=== PATIENT | female | born 1975 | race Asian ===

== ENCOUNTER 2016-03-21 13:33 | Outpatient (CLI) | payer OTHER | END 2016-03-21 20:51 | disposition home or self-care (01) | LOC: RAD 13:33 | DX: M25.511 Pain in right shoulder (principal) ==

== ENCOUNTER 2016-07-22 11:00 | Outpatient (CLI) | payer OTHER | END 2016-07-22 13:00 | disposition home or self-care (01) | LOC: RESP 11:00 | DX: R06.09 Other forms of dyspnea (principal); Z01.810 Encounter for preprocedural cardiovascular examination ==

== ENCOUNTER 2016-10-02 13:14 | Outpatient (CLI) | payer OTHER | END 2016-10-02 20:00 | disposition home or self-care (01) | LOC: RAD 13:14 | DX: M79.672 Pain in left foot (principal) ==

== ENCOUNTER 2016-11-21 10:28 | Outpatient (CLI) | payer OTHER | END 2016-11-21 19:14 | disposition home or self-care (01) | LOC: RAD 10:28 | DX: K59.01 Slow transit constipation (principal) ==

== ENCOUNTER 2016-12-27 22:47 | Emergency (ER) | payer OTHER ==
[~2016-12-27] VITALS: Ht 167.6 cm; Wt 155.6 kg
== END 2016-12-27 23:34 | disposition home or self-care (01) ==
LOC: ED 22:47
DX: R20.0 Anesthesia of skin (principal)
CPT/HCPCS: 99281

== ENCOUNTER 2017-01-09 14:05 | Outpatient (CLI) | payer OTHER | END 2017-01-09 19:01 | disposition home or self-care (01) | LOC: RAD 14:05 | DX: M25.561 Pain in right knee (principal) ==

== ENCOUNTER 2017-01-27 12:47 | Outpatient (CLI) | payer OTHER | END 2017-01-27 19:11 | disposition home or self-care (01) | LOC: RAD 12:47 | DX: M79.672 Pain in left foot (principal) ==

== ENCOUNTER 2017-05-21 16:07 | Outpatient (CLI) | payer OTHER | END 2017-05-21 22:58 | disposition home or self-care (01) | LOC: RESP 16:07 | DX: G56.03 Carpal tunnel syndrome, bilateral upper limbs (principal); G56.23 Lesion of ulnar nerve, bilateral upper limbs | CPT/HCPCS: 95885; 95911 ==

== ENCOUNTER 2017-06-01 12:26 | Outpatient (CLI) | payer OTHER | END 2017-06-01 23:37 | disposition home or self-care (01) | LOC: RAD 12:26 | DX: M54.5 Low back pain (principal) ==

== ENCOUNTER 2017-06-12 10:22 | Outpatient (CLI) | payer OTHER | END 2017-06-12 19:24 | disposition home or self-care (01) | LOC: MRI 10:22 | DX: M51.36 Other intervertebral disc degeneration, lumbar region (principal) ==

== ENCOUNTER 2017-09-17 15:43 | Outpatient (CLI) | payer OTHER | END 2017-09-17 22:54 | disposition home or self-care (01) | LOC: RAD 15:43 | DX: S00.33XA Contusion of nose, initial encounter (principal) ==

== ENCOUNTER 2017-12-19 10:57 | Emergency (ER) | payer OTHER ==
[~2017-12-19] VITALS: Ht 167.6 cm; Wt 148.3 kg
[2017-12-19] MEDS ORDERED: GRALISE600 MG PO (11:07)
[2017-12-19] MEDS ORDERED: ADDERALL10 MG PO (11:07)
[2017-12-19 11:29] LABS: PLATELET COUNT 258 K/uL (152-353)
[2017-12-19 11:35] LABS: POTASSIUM 3.7 mmol/L (3.6-5.2)
[2017-12-19 14:35] VITALS: BP 135/75; TEMP 98.1
== END 2017-12-19 14:35 | disposition home or self-care (01) ==
LOC: ED 10:57
PROVIDERS: Family Medicine
DX: F32.89 Other specified depressive episodes (principal); R00.1 Bradycardia, unspecified
CPT/HCPCS: 36415; 80053; 80307; 80320; 80329; 81000; 84443; 85027; 93005; 99283

== ENCOUNTER 2018-02-13 09:34 | Outpatient (CLI) | payer OTHER ==
[~2018-02-13 09:34] MED LIST: ADDERALL10 MG PO; GRALISE600 MG PO
[2018-02-13 10:26] LABS: PLATELET COUNT 265 K/uL (152-353)
[2018-02-13 10:34] LABS: POTASSIUM 4.1 mmol/L (3.6-5.2)
== END 2018-02-13 18:49 | disposition home or self-care (01) ==
LOC: LABW 09:34
PROVIDERS: Family Medicine
DX: J09.X1 Influenza due to identified novel influenza A virus with pneumonia (principal)
CPT/HCPCS: 36415; 80053; 85027; 96360

== ENCOUNTER 2018-11-04 16:14 | Outpatient (CLI) | payer OTHER | END 2018-11-04 23:26 | disposition home or self-care (01) | LOC: RAD 16:14 | DX: S99.822A Other specified injuries of left foot, initial encounter (principal) ==

== ENCOUNTER 2018-11-16 14:08 | Emergency (ER) | payer OTHER ==
[~2018-11-16] VITALS: Ht 167.6 cm; Wt 145.2 kg
[2018-11-16 15:01] LABS: PLATELET COUNT 291 K/uL (152-353)
[2018-11-16 15:18] LABS: POTASSIUM 3.7 mmol/L (3.6-5.2); SODIUM 136 mmol/L (136-145)
[2018-11-16 17:35] VITALS: BP 124/76; TEMP 97.8
== END 2018-11-16 17:35 | disposition home or self-care (01) ==
LOC: ED 14:08
PROVIDERS: Family Medicine
DX: R07.89 Other chest pain (principal); K21.9 Gastro-esophageal reflux disease without esophagitis; J06.9 Acute upper respiratory infection, unspecified
CPT/HCPCS: 80053; 82550; 84484; 85027; 93005; 99284

== ENCOUNTER 2019-08-01 12:21 | Emergency (ER) | payer OTHER ==
[~2019-08-01] VITALS: Ht 167.6 cm; Wt 157.9 kg
[2019-08-01 14:59] VITALS: BP 135/91; TEMP 97.7
== END 2019-08-01 14:59 | disposition home or self-care (01) ==
LOC: ED 12:21
DX: K59.09 Other constipation (principal); N39.0 Urinary tract infection, site not specified
CPT/HCPCS: 81000; 99283

== ENCOUNTER 2019-08-30 12:58 | Outpatient (CLI) | payer OTHER ==
[~2019-08-30 12:58] MED LIST changes: +OMEPRAZOLE20 M1 PO
== END 2019-08-30 20:36 | disposition home or self-care (01) ==
LOC: CT 12:58
DX: S89.92XA Unspecified injury of left lower leg, initial encounter (principal)

== ENCOUNTER 2019-09-28 11:40 | Outpatient (CLI) | payer OTHER ==
[~2019-09-28] VITALS: Ht 167.6 cm; Wt 158.8 kg
[2019-09-28 11:55] VITALS: BP 108/76; TEMP 99.2
== END 2019-09-28 19:51 | disposition home or self-care (01) ==
LOC: INF 11:40
DX: E86.0 Dehydration (principal)
CPT/HCPCS: 96360; 96366

== ENCOUNTER 2021-04-23 16:22 | Outpatient (CLI) | payer OTHER ==
[2021-04-23 17:10] LABS: POTASSIUM 3.6 mmol/L (3.6-5.2)
== END 2021-04-23 18:58 | disposition home or self-care (01) ==
LOC: US 16:22
PROVIDERS: ATTEND Nurse Practitioner Primary Care
DX: R60.0 Localized edema (principal)
CPT/HCPCS: 36415; 80053; 83880

== ENCOUNTER 2021-07-15 11:34 | Outpatient (CLI) | payer OTHER | END 2021-07-15 18:53 | disposition home or self-care (01) | LOC: RAD 11:34 | PROVIDERS: ATTEND Physician Assistant | DX: M54.59 Other low back pain (principal); M25.562 Pain in left knee ==

== ENCOUNTER 2022-03-21 12:11 | Outpatient (CLI) | payer OTHER | END 2022-03-21 19:17 | disposition home or self-care (01) | LOC: RAD 12:11 | PROVIDERS: ATTEND Physician Assistant | DX: M25.512 Pain in left shoulder (principal) ==

== ENCOUNTER 2022-04-30 14:10 | Outpatient (CLI) | payer OTHER | END 2022-04-30 19:16 | disposition home or self-care (01) | LOC: MRI 14:10 | PROVIDERS: ATTEND Physician Assistant | DX: M75.122 Complete rotator cuff tear or rupture of left shoulder, not specified as traumatic (principal) ==

== ENCOUNTER 2022-07-14 15:38 | Emergency (ER) | payer OTHER ==
[~2022-07-14] VITALS: Ht 170.2 cm; Wt 168.7 kg
[2022-07-14] MEDS ORDERED: GRALISE600 MG PO (16:08)
[2022-07-14 17:17] LABS: PLATELET COUNT 340 K/uL (152-353)
[2022-07-14 18:00] VITALS: BP 135/81; TEMP 97.9
[2022-07-15 04:52] LABS: POTASSIUM 4.4 mmol/L (3.6-5.2)
== END 2022-07-14 18:00 | disposition home or self-care (01) ==
LOC: ED 15:38
PROVIDERS: Internal Medicine
DX: I48.91 Unspecified atrial fibrillation (principal)
CPT/HCPCS: 36415; 80053; 85027; 93005; 96374; 99284; J3490

== ENCOUNTER 2022-07-30 21:13 | Emergency (ER) | payer OTHER ==
[~2022-07-30] VITALS: Ht 170.2 cm; Wt 169.2 kg
[2022-07-30 22:44] LABS: PLATELET COUNT 253 K/uL (152-353)
[2022-07-30 22:54] LABS: POTASSIUM 3.6 mmol/L (3.6-5.2)
[2022-07-30 23:50] VITALS: BP 140/89; TEMP 98.9
== END 2022-07-30 23:50 | disposition home or self-care (01) ==
LOC: ED 21:13
PROVIDERS: Emergency Medicine
DX: R07.9 Chest pain, unspecified (principal); I10 Essential (primary) hypertension
CPT/HCPCS: 36415; 80053; 84484; 85008; 85027; 93005; 96372; 99283; J1885

== ENCOUNTER 2022-08-29 10:38 | Outpatient (CLI) | payer OTHER | END 2022-08-29 19:11 | disposition home or self-care (01) | LOC: MAMMO 10:38 | PROVIDERS: ATTEND Nurse Practitioner Family | DX: Z12.31 Encounter for screening mammogram for malignant neoplasm of breast (principal) ==

== ENCOUNTER 2022-09-10 12:42 | Outpatient (CLI) | payer OTHER | END 2022-09-10 20:30 | disposition home or self-care (01) | LOC: US 12:42 | PROVIDERS: ATTEND Nurse Practitioner Family | DX: R22.42 Localized swelling, mass and lump, left lower limb (principal) ==

== ENCOUNTER 2022-09-11 13:32 | Outpatient (CLI) | payer OTHER | END 2022-09-11 19:24 | disposition home or self-care (01) | LOC: US 13:32 | PROVIDERS: ATTEND Nurse Practitioner Family | DX: R22.42 Localized swelling, mass and lump, left lower limb (principal) ==

== ENCOUNTER 2022-10-20 09:28 | Outpatient (CLI) | payer OTHER | END 2022-10-20 20:17 | disposition home or self-care (01) | LOC: RESP 09:28 | PROVIDERS: ATTEND Nurse Practitioner Family | DX: R07.89 Other chest pain (principal) | CPT/HCPCS: 93005 ==

== ENCOUNTER 2022-11-04 20:16 | Emergency (ER) | payer OTHER ==
[~2022-11-04] VITALS: Ht 167.6 cm; Wt 172.4 kg
[2022-11-04 23:00] VITALS: BP 147/81
[2022-11-05] MEDS ORDERED: FUROSEMIDE20 MG PO (05:07)
[2022-11-05] MEDS ORDERED: PANTOPRAZOLE SO40 M1 PO (05:07)
[2022-11-05] MEDS ORDERED: ESCITALOPRAM10 MG PO (05:11)
[2022-11-05] MEDS ORDERED: ELIQUIS5 MG MT (05:11)
[2022-11-05] MEDS ORDERED: METO-837 PO (05:12)
[2022-11-05] MEDS ORDERED: VITAMIN D50000 UNIT PO (05:12)
== END 2022-11-04 23:00 | disposition home or self-care (01) ==
LOC: ED 20:16
DX: R51.9 Headache, unspecified (principal); I10 Essential (primary) hypertension; F17.290 Nicotine dependence, other tobacco product, uncomplicated
CPT/HCPCS: 99282

== ENCOUNTER 2023-04-14 11:02 | Outpatient (CLI) | payer OTHER ==
[~2023-04-14 11:02] MED LIST changes: +ELIQUIS5 MG MT; +ESCITALOPRAM10 MG PO; +FUROSEMIDE20 MG PO; +METO-837 PO; +PANTOPRAZOLE SO40 M1 PO; +VITAMIN D50000 UNIT PO
== END 2023-04-14 19:07 | disposition home or self-care (01) ==
LOC: US 11:02
PROVIDERS: ATTEND Nurse Practitioner Family
DX: E04.1 Nontoxic single thyroid nodule (principal)

== ENCOUNTER 2023-04-16 07:54 | Emergency (ER) | payer OTHER ==
[~2023-04-16] VITALS: Ht 167.6 cm; Wt 167.8 kg
[2023-04-16 08:00] VITALS: TEMP 99.4
[2023-04-16] MEDS ORDERED: TETANUS TOXOID-DIPHTHERIA-ACEL 0.5 ML INJ IM ONE (08:07)
[2023-04-16] MEDS ORDERED: TETANUS TOXOID-DIPHTHERIA-ACEL 0.5 ML INJ ONE (08:11)
[2023-04-16 10:42] VITALS: BP 112/65
== END 2023-04-16 10:47 | disposition home or self-care (01) ==
LOC: ED 07:54
DX: S80.11XA Contusion of right lower leg, initial encounter (principal); S80.811A Abrasion, right lower leg, initial encounter; W17.89XA Other fall from one level to another, initial encounter
CPT/HCPCS: 90471; 90715; 99283